=== PATIENT | male | born 1955 | race Two or more races ===

== ENCOUNTER 2018-12-13 13:38 | Emergency (ER) | payer OTHER, MEDICARE ==
[~2018-12-13] VITALS: Ht 167.6 cm; Wt 76.8 kg
--- NOTE | 2018-12-13 13:57 | NUR ---
PT STATES WHILE DRIVING STARTED FEELING NUMBNESS AND TINLGING ALL EXTREMITIES AND FACE AND FELT LIKE HE COULDN'T CATCH HIS BREATH. TINGLING REMAINS, ALTHOUGH EXAMINING PT HE FELT IT DECREASED SOMEWHAT.
[2018-12-13 14:38] LABS: BASOPHILS # (AUTO) 0.03 x10^3/uL (0-0.1); BASOPHILS % (AUTO) 1 % (0-1); EOSINOPHILS # (AUTO) 0.06 x10^3/uL (0-0.4); EOSINOPHILS % (AUTO) 1 % (1-7); LYMPHOCYTES # (AUTO) 1.92 x10^3/uL (1-3.4); LYMPHOCYTES % (AUTO) 36 % (22-44); MD NO; MEAN CORPUSCULAR HEMOGLOBIN 31.8 pg (27.5-34.5); MEAN CORPUSCULAR VOLUME 93.6 fL (81-97); MEAN PLATELET VOLUME 8.5 fL (7.4-10.4); MONOCYTES # (AUTO) 0.42 x10^3/uL (0.2-0.8); MONOCYTES % (AUTO) 8 % (2-9); NEUTROPHILS # (AUTO) 2.92 x10^3/uL (1.8-6.8); NEUTROPHILS % (AUTO) 55 % (42-75); PLATELET COUNT 219 x10^3/uL (130-400); RED BLOOD COUNT 4.53 x10^6/uL (4.38-5.82)
[2018-12-13 14:50] LABS: ALBUMIN 3.9 g/dL (3.4-5.0); ANION GAP 6 mmol/L (5-15); CALCIUM 8.8 mg/dL (8.5-10.1); CHLORIDE 110 mmol/L (98-107)
[2018-12-13 14:55] LABS: ALANINE AMINOTRANSFERASE 52 U/L (12-78); ALKALINE PHOSPHATASE 87 U/L (45-117); BILIRUBIN,TOTAL 1.2 mg/dL (0.2-1.0); CREATININE 1.08 mg/dL (0.7-1.3); TOTAL PROTEIN 7.6 g/dL (6.4-8.2); TROPONIN I < 0.015 ng/mL (0.000-0.045)
[2018-12-13 15:06] LABS: MICROSCOPIC AUTO
[2018-12-13 15:20] LABS: CULTURE INDICATED? NO
[2018-12-13 15:51] VITALS: BP 164/95
--- NOTE | 2018-12-13 15:51 | NUR ---
AT BEDSIDE. PT DENIES NUMBNESS AND TINGLING AT THIS TIME. BREATHING EVEN AND UNLABORED
--- NOTE | 2018-12-13 16:38 | NUR ---
AT BEDSIDE RE-EVALUATING PT
== END 2018-12-13 16:58 | disposition home or self-care (01) ==
LOC: ED 14:25
DX: R20.2 Paresthesia of skin (principal); F41.1 Generalized anxiety disorder; R06.4 Hyperventilation
CPT/HCPCS: 36415; 71045; 80053; 81001; 83605; 84484; 85025; 93005; 99284